=== PATIENT | female | born 1985 | race Caucasian/White ===

== ENCOUNTER 2016-11-13 14:09 | Emergency (ER) | payer OTHER ==
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
[2016-11-14 03:01] VITALS: BP 138/103
== END 2016-11-13 21:50 | disposition home or self-care (01) ==
LOC: ED 14:09
DX: M79.1 Myalgia (principal); I10 Essential (primary) hypertension; F17.200 Nicotine dependence, unspecified, uncomplicated; F12.10 Cannabis abuse, uncomplicated; W18.2XXA Fall in (into) shower or empty bathtub, initial encounter; Y93.89 Activity, other specified; Y99.8 Other external cause status; Y92.89 Other specified places as the place of occurrence of the external cause
CPT/HCPCS: 99282